=== PATIENT | male | born 1945 | race Caucasian/White ===

== ENCOUNTER 2016-06-22 22:16 | Inpatient (IN) | payer MEDICARE, OTHER ==
[~2016-06-22] VITALS: Ht 180.3 cm; Wt 78.8 kg
[~2016-06-22 22:16] MED LIST: ALBUTEROL SUL0.083 % IN; ATIVAN2 MG PO; FLOVENT HFA44 MCG IN; KEFLEX500 M1 PO; LEVAQUIN500 MG PO; LEVAQUIN750 MG PO; Levaquin PO; MEDDOSEPAK PO; MUCINEX1200 MG PO; PREDNISONE10 MG PO; PROAIR HFA IN; PROTONIX40 MG PO; PULMICORT180 MCG IN; ROBITUSSIN AC10 ML PO; SPIRIVA HANDIHALER IN; VERAMYST27.5 MCG; [UNRECOGNIZED DRUG - OTHER] OR
--- NOTE | 2016-06-22 22:25 | NUR ---
PT TO RM 13 VIA W/C. PT WEARING HOME 02 AT 3L.
[2016-06-22] MEDS ORDERED: DUONEB IN (22:30)
[2016-06-22] MEDS ORDERED: SPIRIVA IN (22:31)
--- NOTE | 2016-06-22 22:44 | NUR ---
RESP AT BEDSIDE FOR ABG AND DOUNEB TX.
--- NOTE | 2016-06-22 22:46 | NUR ---
BC X2 DRAWN BY LAB.
[2016-06-22 22:50] LABS: HEMATOCRIT 48.3 % (39.0-50.0); HEMOGLOBIN 15.2 g/dl (14.0-18.0); IMMATURE GRANULOCYTES 0.6 % (0.0-1.0); MEAN CELL VOLUME 99.2 fL CALC (80.0-100.0); MEAN CORPUSCULAR HGB 31.2 pG CALC (26.0-32.0); MEAN CORPUSCULAR HGB CONC 31.5 g/L CALC (32.0-36.0); PLATELET COUNT 401 thou/uL (130-400); RED BLOOD COUNT 4.87 mill/uL (4.70-6.10); RED CELL DISTRI WIDTH 13.2 % (11.5-15.5)
[2016-06-22 22:58] LABS: MANUAL DIFFERENTIAL YES
--- NOTE | 2016-06-22 23:09 | NUR ---
PT RELATED BREATHING IMPROVING.
[2016-06-22 23:10] LABS: ALBUMIN 4.4 g/dL (3.2-5.0); ALKALINE PHOSPHATASE 111 u/l (38-126); ANION GAP 19 (6-22 (CALC)); BILIRUBIN, TOTAL 0.6 mg/dL (0.0-1.4); BUN 14 mg/dL (8-23); BUN/CREATININE RATIO 19 (12-20 (CALC)); CALCIUM 9.9 mg/dL (8.4-10.2); CARBON DIOXIDE 28 mmol/l (22-30); CHLORIDE 102 mmol/l (95-108); CREATININE 0.7 mg/dL (0.7-1.3); GFR > 60 ML/MIN (>=60 (CALC)); GFR FOR AFR.AMER. > 60 ML/MIN (>=60 (CALC)); GLUCOSE 93 mg/dL (82-115); POTASSIUM 3.7 mmol/l (3.5-5.1); SGOT/AST 17 u/l (19-48); SGPT/ALT 21 u/l (11-66); SODIUM 145 mmol/l (137-146); TOTAL PROTEIN 7.8 g/dL (6.3-8.2)
[2016-06-22 23:18] LABS: MYOGLOBIN 59 ng/mL (0 - 121)
[2016-06-22 23:21] LABS: BAND 5 % (0-8); PLATELET ESTIMATE NORMAL
[2016-06-22 23:39] LABS: ACT PARTIAL THROMBO TIME 30.7 SECONDS (20.0-32.5); INTERNATIONAL NORMALIZED RATIO 0.9 RATIO (0.7-1.3); PROTHROMBIN TIME 10.2 SECONDS (9.0-12.5)
--- NOTE | 2016-06-22 23:50 | NUR ---
PT RESP DOWN TO 24. P 128 PT RELATED BREATHING BETTER, BUT BECOMES SOB ON EXERTION.
[2016-06-23 00:01] LABS: URINE BILIRUBIN - DIPSTICK NEGATIVE (NEGATIVE); URINE BLOOD DIPSTICK NEGATIVE (NEGATIVE); URINE CLARITY CLEAR; URINE COLOR YELLOW; URINE GLUCOSE - DIPSTICK NEGATIVE (NEGATIVE); URINE KETONE 15 mg/dL (NEGATIVE); URINE LEUK ESTERASE NEGATIVE (NEGATIVE); URINE NITRITE - DIPSTICK NEGATIVE (Negative); URINE PROTEIN - DIPSTICK NEGATIVE (NEG-TRACE); URINE SPECIFIC GRAVITY 1.025
--- NOTE | 2016-06-23 00:17 | NUR ---
REPORT GIVEN TO STANTON DICKINSON/SURG.
--- NOTE | 2016-06-23 00:32 | NUR ---
PT TO 289 VIA STRETCHER WITH RN AND TELE, 02.
[2016-06-23 00:35] VITALS: BP 162/90
--- NOTE | 2016-06-23 00:35 | NUR ---
PATIENT CAME TO THE FLOOR VIA STRETCHER ACCOMPANIED BY NURSE. PATIENT ASSISTED TO BED AND ADMINNSION ASSESSMENT COMPLETED. PATIENT IS O2 DEPENDENT AND USES 3L NC AT HOME. OXYGEN AT 3L VIA NC APPLIED AND HUMIFIED. SALINE LOCK NOTED TO LEFT AC.
--- NOTE | 2016-06-23 04:00 | NUR ---
NO ACUTE CHANGES NOTED IN PATIENT'S CONDITION. LAYING IN BED WITH EYES CLOSED. BREATHIG IS LABORED.
[2016-06-23 04:35] VITALS: BP 140/82
--- NOTE | 2016-06-23 07:00 | NUR ---
RECEIVED BEDSIDE REPORT FROM STANTON FULTON. PT RESTING ON LEFT SIDE WITH EYES CLOSED, AWAKENS EASILY. RESPS EVEN AND UNLABORED ON O2 VIA NC, TELE MONITOR IN PLACE. UNABLE TO SPEAK IN FULL SENTENCES WITHOUT STOPPING FOR BREATH. PLAN OF CARE DISCUSSED. SAFETY PRECAUTIONS REINFORCED. BED IN LOWEST POSITION WITH WHEELS LOCKED. CALL LIGHT WITHIN REACH. ENCOURAGED PT TO CALL FOR ANY NEEDS.
[2016-06-23 08:00] LABS: HEMATOCRIT 41.5 % (39.0-50.0); HEMOGLOBIN 13.5 g/dl (14.0-18.0); IMMATURE GRANULOCYTES 0.9 % (0.0-1.0); MEAN CORPUSCULAR HGB 31.5 pG CALC (26.0-32.0); MEAN CORPUSCULAR HGB CONC 32.5 g/L CALC (32.0-36.0); RED BLOOD COUNT 4.28 mill/uL (4.70-6.10); RED CELL DISTRI WIDTH 13.2 % (11.5-15.5)
[2016-06-23 08:21] VITALS: BP 130/76
[2016-06-23 08:29] LABS: PLATELET COUNT 312 thou/uL (130-400)
[2016-06-23 08:30] LABS: MANUAL DIFFERENTIAL YES
--- NOTE | 2016-06-23 08:34 | NUR ---
DR ZHENG IN TO SEE PT, NEW ORDERS RECEIVED.
--- NOTE | 2016-06-23 12:00 | NUR ---
IN HIGH FOWLERS EATING LUNCH. RESPS EVEN AND UNLABORED ON O2 VIA NC AT REST. SHORTNESS OF BREATH NOTED WITH EXERTION OR WHEN ATTEMPTING TO SPEAK IN COMPLETE SENTENCES. TELE MONITOR IN PLACE. VOICES NO C/O AT THIS TIME. CALL LIGHT WITHIN REACH. WILL CONTINUE TO MONITOR.
[2016-06-23 12:30] VITALS: BP 131/78
--- NOTE | 2016-06-23 16:00 | NUR ---
RESTING IN BED WITH EYES CLOSED, AWAKENS EASILY. RESPS EVEN AND UNLABORED AT REST, TELE MONITOR IN PLACE. VOICES NO C/O AT THIS TIME. CALL LIGHT WITHIN REACH.
[2016-06-23 16:52] VITALS: BP 154/79
[2016-06-23 20:00] VITALS: BP 141/80
--- NOTE | 2016-06-23 20:00 | NUR ---
telemetry report rec'd per b sara sr hr 83.
--- NOTE | 2016-06-23 20:30 | NUR ---
awake. no acute resp distress. breath sounds diminished bilat. o2 cont per nc. po fluids taken well. voids per urinal. fall precautions cont.
--- NOTE | 2016-06-24 00:01 | NUR ---
telemetry report rec'd per carlos a ruiz sr hr 90
[2016-06-24 00:25] VITALS: BP 120/68
--- NOTE | 2016-06-24 00:30 | NUR ---
up to shower then shaved self. no acute resp distress, kristin well.
--- NOTE | 2016-06-24 01:20 | NUR ---
had large hard stool. spec sent to lab.
[2016-06-24 03:22] LABS: C. DIFFICILE TOXIN A&B NEGATIVE (NEGATIVE)
--- NOTE | 2016-06-24 04:00 | NUR ---
eyes closed. no apparent distress. o2 cont. telemetry report rec'd per michelle saldana sr hr 82.
[2016-06-24 04:50] VITALS: BP 129/70
[2016-06-24 05:45] LABS: HEMATOCRIT 38.6 % (39.0-50.0); HEMOGLOBIN 12.4 g/dl (14.0-18.0); IMMATURE GRANULOCYTES 0.8 % (0.0-1.0); MEAN CORPUSCULAR HGB 31.5 pG CALC (26.0-32.0); MEAN CORPUSCULAR HGB CONC 32.1 g/L CALC (32.0-36.0); NEUT# 20.81 thou/uL (1.82-7.42); RED BLOOD COUNT 3.94 mill/uL (4.70-6.10); RED CELL DISTRI WIDTH 13.1 % (11.5-15.5)
[2016-06-24 06:21] LABS: ANION GAP 9 (6-22 (CALC)); BUN 16 mg/dL (8-23); BUN/CREATININE RATIO 28 (12-20 (CALC)); CALCIUM 8.8 mg/dL (8.4-10.2); CARBON DIOXIDE 30 mmol/l (22-30); CHLORIDE 104 mmol/l (95-108); CREATININE 0.6 mg/dL (0.7-1.3); GFR > 60 ML/MIN (>=60 (CALC)); GFR FOR AFR.AMER. > 60 ML/MIN (>=60 (CALC)); GLUCOSE 139 mg/dL (82-115); POTASSIUM 4.3 mmol/l (3.5-5.1); SODIUM 138 mmol/l (137-146)
--- NOTE | 2016-06-24 07:00 | NUR ---
RECEIVED BEDSIDE REPORT FROM VITA KOENIG. PT RESTING ON LEFT SIDE WITH EYES CLOSED, AWAKENS EASILY. RESPS EVEN AND UNLABORED ON O2 VIA NC, TELE MONITOR IN PLACE. REPORTS FEELING BETTER TODAY, BREATHING EASIER. DENIES PAIN OR DISCOMFORT. PLAN OF CARE DISCUSSED. SAFETY PRECAUTIONS REINFORCED. BED IN LOWEST POSITION WITH WHEELS LOCKED. CALL LIGHT WITHIN REACH. WILL CONTINUE TO MONITOR.
[2016-06-24] MEDS ORDERED: STERAPRED DS10 MG PO (07:20)
[2016-06-24] MEDS ORDERED: ZITHROMAX250 MG PO (07:21)
[2016-06-24 07:55] VITALS: BP 121/69
--- NOTE | 2016-06-24 12:00 | NUR ---
PT IN HIGH FOWLERS EATING LUNCH. RESPS EVEN AND UNLABORED ON O2 VIA NC, TELE MONITOR IN PLACE. DENIES PAIN OR DISCOMFORT. ALL NEEDS MET. CALL LIGHT WITHIN REACH. WILL CONTINUE TO MONITOR.
--- NOTE | 2016-06-24 14:40 | NUR ---
Discharge instructions given. Patient verbalizes understanding of same. Discharged in stable condition via Wheelchair to Home with family. All belongings sent with pt.
--- NOTE | 2016-06-28 08:25 | NUR ---
ED CULTURE PHARMACY MEDICATION FOLLOW-UP Patient was seen in ED on 06/23/16 Cultures were reviewed from: Blood Patient was discharged with Rx for:AZITHROMYCIN FOR BRONCHITIS C&S report came back with No Growth PLAN: Recommended: No Change Comment:
== END 2016-06-24 14:40 | disposition home or self-care (01) | DRG 191 ==
LOC: ENPENDDIS → ED 22:16 → ED-I 06-23 → ED 06-23 00:07 → MS2 06-23 00:08
PROVIDERS: Internal Medicine; ADMIT Internal Medicine; ATTEND Internal Medicine
DX: J44.1 Chronic obstructive pulmonary disease with (acute) exacerbation (principal); J96.10 Chronic respiratory failure, unspecified whether with hypoxia or hypercapnia; Z99.81 Dependence on supplemental oxygen; J44.0 Chronic obstructive pulmonary disease with (acute) lower respiratory infection; J20.9 Acute bronchitis, unspecified; F41.9 Anxiety disorder, unspecified; Z87.891 Personal history of nicotine dependence
CPT/HCPCS: Q9967

== ENCOUNTER 2017-04-01 18:46 | Emergency (ER) | payer MEDICARE, OTHER ==
[~2017-04-01] VITALS: Ht 180.3 cm; Wt 71.4 kg
[~2017-04-01 18:46] MED LIST changes: +DUONEB IN; +SPIRIVA IN; +STERAPRED DS10 MG PO; +ZITHROMAX250 MG PO
[2017-04-01 19:28] LABS: HEMATOCRIT 42.6 % (39.0-50.0); HEMOGLOBIN 13.6 g/dl (14.0-18.0); IMMATURE GRANULOCYTES 0.5 % (0.0-1.0); MEAN CELL VOLUME 99.5 fL CALC (80.0-100.0); MEAN CORPUSCULAR HGB 31.8 pG CALC (26.0-32.0); MEAN CORPUSCULAR HGB CONC 31.9 g/L CALC (32.0-36.0); NEUT# 15.6 thou/uL (1.82-7.42); RED BLOOD COUNT 4.28 mill/uL (4.70-6.10); RED CELL DISTRI WIDTH 11.9 % (11.5-15.5)
--- NOTE | 2017-04-01 19:32 | NUR ---
BREATHING TREATMENT GIVEN. BREATHING TECH. FOR GOOD DEPOSITION TO THE LUNGS AND FOR SOB.
[2017-04-01 19:39] LABS: ALKALINE PHOSPHATASE 95 u/l (38-126); AMYLASE 71 u/l (30-110); ANION GAP 14 (6-22 (CALC)); BILIRUBIN, TOTAL 0.4 mg/dL (0.0-1.4); BUN 16 mg/dL (8-23); BUN/CREATININE RATIO 24 (12-20 (CALC)); CALCIUM 9.7 mg/dL (8.4-10.2); CARBON DIOXIDE 28 mmol/l (22-30); CHLORIDE 104 mmol/l (95-108); CREATININE 0.7 mg/dL (0.7-1.3); GFR > 60 ML/MIN (>=60 (CALC)); GFR FOR AFR.AMER. > 60 ML/MIN (>=60 (CALC)); GLUCOSE 103 mg/dL (82-115); LIPASE 50 u/l (23-300); POTASSIUM 4.2 mmol/l (3.5-5.1); SGOT/AST 19 u/l (19-48); SGPT/ALT 25 u/l (11-66); SODIUM 141 mmol/l (137-146); TOTAL PROTEIN 7.1 g/dL (6.3-8.2)
[2017-04-01 19:52] LABS: MYOGLOBIN 37 ng/mL (0 - 121)
[2017-04-01 22:17] LABS: URINE BILIRUBIN - DIPSTICK NEGATIVE (NEGATIVE); URINE BLOOD DIPSTICK SMALL (NEGATIVE); URINE COLOR YELLOW; URINE GLUCOSE - DIPSTICK NEGATIVE (NEGATIVE); URINE KETONE NEGATIVE (NEGATIVE); URINE LEUK ESTERASE NEGATIVE (NEGATIVE); URINE NITRITE - DIPSTICK NEGATIVE (Negative); URINE PH 7.5 (4.5-8.0); URINE PROTEIN - DIPSTICK NEGATIVE (NEG-TRACE); URINE UROBILINOGEN - DIPSTICK 0.2 E.U./dL (0.2)
[2017-04-01 22:20] LABS: URINE CLARITY CLEAR
[2017-04-01 22:26] LABS: URINE WBC 0-2 WBC/hpf (0-5)
[2017-04-02 00:07] VITALS: BP 138/76
== END 2017-04-02 00:05 ==
LOC: ED 18:46 → ED-I 22:12 → ED 04-02 00:05
PROVIDERS: Emergency Medicine
DX: R10.31 Right lower quadrant pain (principal); R93.5 Abnormal findings on diagnostic imaging of other abdominal regions, including retroperitoneum; J44.1 Chronic obstructive pulmonary disease with (acute) exacerbation; I71.4 Abdominal aortic aneurysm, without rupture; J90 Pleural effusion, not elsewhere classified; R50.9 Fever, unspecified; R33.9 Retention of urine, unspecified; R00.0 Tachycardia, unspecified
CPT/HCPCS: Q9967

== ENCOUNTER 2017-04-05 20:22 | Emergency (ER) | payer MEDICARE, OTHER ==
[~2017-04-05] VITALS: Ht 180.3 cm; Wt 77.0 kg
--- NOTE | 2017-04-05 21:38 | NUR ---
BREATHING TREATMENT GIVEN. BREATHING TECH. FOR GOOD DEPOSITION TO THE LUNGS AND SOB.
[2017-04-05 21:58] LABS: HEMATOCRIT 39.2 % (39.0-50.0); HEMOGLOBIN 12.9 g/dl (14.0-18.0); IMMATURE GRANULOCYTES 0.5 % (0.0-1.0); MEAN CELL VOLUME 97.5 fL CALC (80.0-100.0); MEAN CORPUSCULAR HGB 32.1 pG CALC (26.0-32.0); MEAN CORPUSCULAR HGB CONC 32.9 g/L CALC (32.0-36.0); NEUT# 12.96 thou/uL (1.82-7.42); RED BLOOD COUNT 4.02 mill/uL (4.70-6.10); RED CELL DISTRI WIDTH 11.9 % (11.5-15.5)
[2017-04-05 22:11] LABS: ANION GAP 16 (6-22 (CALC)); BUN 5 mg/dL (8-23); BUN/CREATININE RATIO 9 (12-20 (CALC)); CALCIUM 9.6 mg/dL (8.4-10.2); CARBON DIOXIDE 25 mmol/l (22-30); CHLORIDE 104 mmol/l (95-108); CREATININE 0.6 mg/dL (0.7-1.3); GFR > 60 ML/MIN (>=60 (CALC)); GFR FOR AFR.AMER. > 60 ML/MIN (>=60 (CALC)); GLUCOSE 114 mg/dL (82-115); POTASSIUM 4.1 mmol/l (3.5-5.1); SODIUM 141 mmol/l (137-146)
[2017-04-05 22:17] LABS: URINE BLOOD DIPSTICK LARGE (NEGATIVE); URINE COLOR BROWN; URINE GLUCOSE - DIPSTICK NEGATIVE (NEGATIVE); URINE KETONE 40 mg/dL (NEGATIVE); URINE PH 7.5 (4.5-8.0); URINE PROTEIN - DIPSTICK >=300 mg/dL (NEG-TRACE); URINE SPECIFIC GRAVITY 1.025
[2017-04-05 22:18] LABS: URINE BILIRUBIN - DIPSTICK NEGATIVE (NEGATIVE); URINE CLARITY TURBID; URINE LEUK ESTERASE MODERATE (NEGATIVE); URINE NITRITE - DIPSTICK POSITIVE (Negative)
[2017-04-05 22:19] LABS: URINE AMORPH SEDIMENT MANY hpf (NONE-FER)
[2017-04-05 23:30] VITALS: BP 145/101
== END 2017-04-05 23:46 ==
LOC: ED 20:22
PROVIDERS: Family Medicine
DX: N32.1 Vesicointestinal fistula (principal); J44.9 Chronic obstructive pulmonary disease, unspecified; K21.9 Gastro-esophageal reflux disease without esophagitis; J98.4 Other disorders of lung
CPT/HCPCS: J2060

== ENCOUNTER 2017-09-12 09:53 | Emergency (ER) | payer MEDICARE, OTHER ==
[~2017-09-12] VITALS: Ht 180.3 cm; Wt 59.0 kg
[2017-09-12] MEDS ORDERED: TAMSULOSIN0.4 MG PO (10:08)
[2017-09-12] MEDS ORDERED: AMITIZA24 MC1 (10:09)
[2017-09-12 10:42] LABS: IMMATURE GRANULOCYTES 0.3 % (0.0-1.0); MEAN CELL VOLUME 101.3 fL CALC (80.0-100.0); MEAN CORPUSCULAR HGB 30.9 pG CALC (26.0-32.0); MEAN CORPUSCULAR HGB CONC 30.5 g/L CALC (32.0-36.0); NEUT# 12.39 thou/uL (1.82-7.42); RED BLOOD COUNT 4.53 mill/uL (4.70-6.10); RED CELL DISTRI WIDTH 13.8 % (11.5-15.5)
[2017-09-12 10:48] LABS: ALBUMIN 3.3 g/dL (3.2-5.0); ALKALINE PHOSPHATASE 98 u/l (38-126); ANION GAP 7 (6-22 (CALC)); BILIRUBIN, TOTAL 0.7 mg/dL (0.0-1.4); BUN 11 mg/dL (8-23); BUN/CREATININE RATIO 24 (12-20 (CALC)); CHLORIDE 98 mmol/l (95-108); CREATININE 0.5 mg/dL (0.7-1.3); GFR > 60 ML/MIN (>=60 (CALC)); GFR FOR AFR.AMER. > 60 ML/MIN (>=60 (CALC)); LIPASE 41 u/l (23-300); POTASSIUM 4.8 mmol/l (3.5-5.1); SGOT/AST 18 u/l (19-48); SGPT/ALT 29 u/l (11-66); SODIUM 136 mmol/l (137-146); TOTAL PROTEIN 6.4 g/dL (6.3-8.2)
[2017-09-12 10:50] LABS: CARBON DIOXIDE 36 mmol/l (22-30); HEMATOCRIT 45.9 % (39.0-50.0)
[2017-09-12 11:43] LABS: URINE BILIRUBIN - DIPSTICK NEGATIVE (NEGATIVE); URINE BLOOD DIPSTICK NEGATIVE (NEGATIVE); URINE CLARITY CLEAR; URINE COLOR YELLOW; URINE GLUCOSE - DIPSTICK NEGATIVE (NEGATIVE); URINE KETONE NEGATIVE (NEGATIVE); URINE LEUK ESTERASE NEGATIVE (NEGATIVE); URINE NITRITE - DIPSTICK NEGATIVE (Negative); URINE PROTEIN - DIPSTICK NEGATIVE (NEG-TRACE); URINE UROBILINOGEN - DIPSTICK 0.2 E.U./dL (0.2)
[2017-09-12 15:05] VITALS: BP 125/71
== END 2017-09-12 15:05 ==
LOC: ED 09:53
PROVIDERS: Family Medicine
DX: K56.600 Partial intestinal obstruction, unspecified as to cause (principal); J44.9 Chronic obstructive pulmonary disease, unspecified; K21.9 Gastro-esophageal reflux disease without esophagitis; N40.0 Benign prostatic hyperplasia without lower urinary tract symptoms; Z93.3 Colostomy status
CPT/HCPCS: Q9967